=== PATIENT | female | born 2000 | race Caucasian/White ===

== ENCOUNTER 2021-05-10 18:43 | Emergency (ER) | payer SELFPAY ==
[~2021-05-10] VITALS: Ht 162.6 cm; Wt 90.9 kg
[2021-05-10 18:44] VITALS: BP 126/76
[2021-05-10] MEDS ORDERED: CIPR-249 PO (18:56)
== END 2021-05-10 19:46 | disposition left against medical advice (07) ==
LOC: M ED 18:43
DX: Z53.29 Procedure and treatment not carried out because of patient's decision for other reasons (principal)